=== PATIENT | female | born 1955 | race Caucasian/White ===

== ENCOUNTER 2017-05-20 14:54 | Emergency (ER) | payer MEDICARE, MEDICAID ==
[~2017-05-20] VITALS: Ht 162.6 cm; Wt 71.4 kg
[~2017-05-20 14:54] MED LIST: ALPRAZOLAM1 MG PO; AMBIEN 5MG TABLE5 MG PO; CARDI-OMEGA1000 MG PO; CENTRUM1 TAB PO; DESYREL DIVIDO150 M1 PO; HYDROMORPHONE HY8 MG PO; NEURONTIN300 MG/CAP PO; NORCO 325 MG-51 TAB PO; PAROXETINE40 MG PO; PRINIVIL20 MG PO; SULINDAC150 MG PO; VERAPAMIL HCL240 MG PO; VITAMIN C BUFF500 MG PO
[2017-05-20 15:01] VITALS: BP 130/64; TEMP 97.6
[2017-05-20] MEDS ORDERED: XANAX XR1 M1 PO (15:46)
[2017-05-20] MEDS ORDERED: GLUCOSAMINE & C1 TAB PO (15:47)
[2017-05-20] MEDS ORDERED: VITAMIN D32000 I1 PO (15:48)
[2017-05-20] MEDS ORDERED: TIROSINT88 MC1 PO (15:48)
[2017-05-20] MEDS ORDERED: PERCOCET 325 MG1 TAB PO (15:49)
[2017-05-20] MEDS ORDERED: LIPITOR20 MG PO (15:49)
[2017-05-20 17:20] VITALS: PULSE 61
== END 2017-05-20 17:23 | disposition home or self-care (01) ==
LOC: COL.ER 14:54
DX: S86.812A Strain of other muscle(s) and tendon(s) at lower leg level, left leg, initial encounter (principal); J43.9 Emphysema, unspecified; M19.90 Unspecified osteoarthritis, unspecified site; W01.0XXA Fall on same level from slipping, tripping and stumbling without subsequent striking against object, initial encounter; Y92.009 Unspecified place in unspecified non-institutional (private) residence as the place of occurrence of the external cause

== ENCOUNTER 2019-01-16 12:16 | Emergency (ER) | payer MEDICARE ==
[~2019-01-16] VITALS: Ht 162.6 cm; Wt 69.1 kg
[~2019-01-16 12:16] MED LIST changes: +GLUCOSAMINE & C1 TAB PO; +LIPITOR20 MG PO; +PERCOCET 325 MG1 TAB PO; +TIROSINT88 MC1 PO; +VITAMIN D32000 I1 PO; +XANAX XR1 M1 PO
[2019-01-16 12:38] VITALS: TEMP 97.2
[2019-01-16 14:58] LABS: COLLECTION METHOD CLEAN CATCH
[2019-01-16 15:25] LABS: PH 7 (5-8); SQUAMOUS EPITHELIAL None Seen /hpf; URINE APPEARANCE Clear; URINE BACTERIA None Seen /hpf; URINE BILIRUBIN Negative (NEGATIVE); URINE BLOOD 1+ (NEGATIVE); URINE COLOR Yellow; URINE GLUCOSE Negative (NEGATIVE); URINE KETONE Negative (NEGATIVE); URINE LEUKOCYTE ESTERASE Negative (NEGATIVE); URINE NITRATE Negative (NEGATIVE); URINE PROTEIN(semi-quant) Negative (NEGATIVE); URINE RBC 0-2 /hpf; URINE UROBILINOGEN Negative (NEGATIVE)
[2019-01-16 16:08] LABS: BASO # 0.1 (0.0-0.2); EOS % 0.5 % (0-4.0); GRAN # 4.9 (1.4-6.5); GRAN % 63.1 % (42.2-75.2); HEMATOCRIT 37.4 % (37.0-47.0); HEMOGLOBIN 12.1 g/dl (12.5-16.0); LYMPH # 2.3 (1.2-3.4); LYMPH % 29.4 % (20.0-51.0); MEAN CELL VOLUME 92 fl (80.0-100.0); MEAN CORPUSCULAR HEMOGLOBIN 30 pg (27.0-31.0); MEAN CORPUSCULAR HGB CONC 32 g/dl (33.0-37.0); MEAN PLATELET VOLUME 10.5 fl (7.4-10.4); MONO # 0.4 (0.1-0.6); MONO % 5.6 % (1.7-9.3); PLATELET COUNT 285 K/mm3 (130-400); RED BLOOD COUNT 4.05 M/mm3 (4.10-5.30); REDCELL DISTRIBUTION WIDTH-CV 13.2 % (11.5-14.5)
[2019-01-16 16:19] LABS: ALBUMIN 4.4 gm/dL (3.5-5.0); BILIRUBIN,TOTAL 0.5 mg/dL (0.0-1.0); CALCIUM 9.5 mg/dL (8.4-10.2); CREATININE, serum 0.61 (0.52-1.25); TOTAL PROTEIN 7.6 gm/dL (6.4-8.2)
[2019-01-16 16:21] LABS: C-REACTIVE PROTEIN 0.5 mg/dL (0.0-0.9)
[2019-01-16] MEDS ORDERED: BENTYL 20MG20 MG/TAB PO (17:33)
[2019-01-16 17:45] VITALS: BP 154/86; PULSE 72
== END 2019-01-16 17:55 | disposition home or self-care (01) ==
LOC: COL.ER 12:16
PROVIDERS: Physician Assistant
DX: K57.90 Diverticulosis of intestine, part unspecified, without perforation or abscess without bleeding (principal); K62.89 Other specified diseases of anus and rectum; F32.9 Major depressive disorder, single episode, unspecified; M79.7 Fibromyalgia; F17.290 Nicotine dependence, other tobacco product, uncomplicated; Z90.710 Acquired absence of both cervix and uterus; Z88.5 Allergy status to narcotic agent; Z88.2 Allergy status to sulfonamides
CPT/HCPCS: J7030; Q9967

== ENCOUNTER 2019-10-28 16:11 | Emergency (ER) | payer MEDICARE ==
[~2019-10-28] VITALS: Ht 162.6 cm; Wt 70.0 kg
[~2019-10-28 16:11] MED LIST changes: +BENTYL 20MG20 MG/TAB PO; +CYMBALTA 60MG60 MG PO; +SINGULAIR 110 MG/TAB PO; +VENTOLIN0.09 MG IH
[2019-10-28 16:52] VITALS: TEMP 99.9
[2019-10-28 17:28] LABS: BASO # 0.1 (0.0-0.2); BASO % 0.6 % (0.0-2.0); EOS % 0.1 % (0-4.0); GRAN # 7.2 (1.4-6.5); GRAN % 86.1 % (42.2-75.2); HEMOGLOBIN 11.2 g/dl (12.5-16.0); LYMPH # 0.4 (1.2-3.4); MEAN CELL VOLUME 92 fl (80.0-100.0); MEAN CORPUSCULAR HEMOGLOBIN 30 pg (27.0-31.0); MEAN CORPUSCULAR HGB CONC 33 g/dl (33.0-37.0); MONO # 0.7 (0.1-0.6); MONO % 7.7 % (1.7-9.3); PLATELET COUNT 230 K/mm3 (130-400); RED BLOOD COUNT 3.69 M/mm3 (4.10-5.30); REDCELL DISTRIBUTION WIDTH-CV 13.6 % (11.5-14.5)
[2019-10-28 17:33] LABS: HEMATOCRIT 33.8 % (37.0-47.0)
[2019-10-28 17:34] LABS: ALBUMIN 4.5 gm/dL (3.5-5.0); BILIRUBIN,TOTAL 0.6 mg/dL (0.0-1.0); C-REACTIVE PROTEIN 4.4 mg/dL (0.0-0.9); CALCIUM 8.9 mg/dL (8.4-10.2); CREATININE, serum 0.56 (0.52-1.25); POTASSIUM 3.1 mmol/L (3.4-5.0); TOTAL PROTEIN 7.7 gm/dL (6.4-8.2)
[2019-10-28] MEDS ORDERED: TAMIFLU 75MG75 MG PO (20:10)
[2019-10-28 20:52] VITALS: BP 119/66; PULSE 86
--- NOTE | 2019-10-29 09:05 | NUR ---
AJ crane received a foster care social worker consult from the ED for the patient due to lack of resources, stating unable to drive at night and needs assistance with transportation. The patient discharged yesterday, 10/28 and drove herself home. AJ crane attempted to contact the patient regarding these concerns, left message.
== END 2019-10-28 20:52 | disposition home or self-care (01) ==
LOC: COL.ER 16:11
PROVIDERS: Emergency Medicine
DX: J10.1 Influenza due to other identified influenza virus with other respiratory manifestations (principal); J44.9 Chronic obstructive pulmonary disease, unspecified; M79.7 Fibromyalgia; Z90.710 Acquired absence of both cervix and uterus; Z88.2 Allergy status to sulfonamides; Z85.118 Personal history of other malignant neoplasm of bronchus and lung
CPT/HCPCS: J7030